=== PATIENT | male | born 1960 | race Hispanic/Latino ===

== ENCOUNTER 2020-03-11 14:56 | Inpatient (IN) | payer OTHER, SELFPAY ==
[2020-03-11] MEDS ORDERED: Ondansetron PF 4 MG/2 ML Vial ONE (15:56)
[2020-03-11] MEDS ORDERED: HYDROmorphone 0.5 MG/0.5 ML SYRINGE ONE ×2 (15:56→16:16)
[2020-03-11] MEDS ORDERED: hydrALAZINE 20 MG/ML VIAL SLOW IVP PRN (16:38)
[2020-03-11] MEDS ORDERED: Dextrose 5% in Water 1,000 ML IV PRN (16:38)
[2020-03-11] MEDS ORDERED: Morphine 4 MG/ML VIAL SLOW IVP PRN (16:38)
[2020-03-11] MEDS ORDERED: Morphine 2 MG/ML VIAL SLOW IVP PRN (16:38)
[2020-03-11] MEDS ORDERED: Dextrose 50% Abboject 50 ML SYRINGE SLOW IVP PRN (16:38)
[2020-03-11] MEDS ORDERED: Ibuprofen 600 MG TAB PO PRN (16:47)
--- NOTE | 2020-03-11 18:24 | CT ---
Head CT without contrast 03/11/2020: COMPARISON: 03/11/2020 HISTORY: Reevaluate intracranial hemorrhage TECHNIQUE: Axial CT imaging at 5 mm intervals from vertex through skull base without contrast FINDINGS: The imaged paranasal sinuses and mastoid air cells are well aerated. No displaced calvarial fracture is seen. The prior examination demonstrated a punctate hyperdensity in the posterior medial aspect of the left cerebral hemisphere near the vertex. That finding is no longer visualized. There is no convincing evidence for intracranial hemorrhage on this exam. IMPRESSION: No evidence for intracranial hemorrhage noted on this examination. Previously noted punct ate focus of hyperdensity near the vertex posteriorly on the left is no longer seen.
--- NOTE | 2020-03-11 18:40 | RAD ---
2 views right clavicle: 03/11/2020 COMPARISON: None available HISTORY: Injury, trauma, pain FINDINGS: There is a comminuted obliquely oriented midshaft right clavicle fracture. The largest dist al fracture fragment demonstrates 1.1 cm of inferior displacement. There is degenerative change involving the right acromioclavicular joint. The glenohumeral relationship is not optimally assessed as no scapular Y view or axillary view is provided. There is a pneumothorax in the right lung apex. Right pneumothorax and right clavicle fracture also w ere noted on chest CT performed 03/11/2020. IMPRESSION: Comminuted displaced fracture of the right clavicle. Right apical pneumothorax.
[2020-03-11 19:17] LABS: #Lymphocytes 0.8 thou/uL (1.20-3.40); #Monocytes 0.6 thou/uL (0.11-0.59); #Neutrophils 8.2 thou/uL (1.40-6.50); %Basophils 0.2 % (0.0-1.0); %Eosinophils 0.2 % (0.0-10.0); %Lymphocytes 8.4 % (21.0-51.0); %Monocytes 6.4 % (0.0-10.0); %Neutrophils 84.9 % (42.0-75.0); Hemoglobin 13.4 g/dL (14.0-18.0); Mean Corpuscular HGB CONC 32.6 g/dL (32.0-36.0); Mean Corpuscular Hemoglobin 30.1 pg (27.0-31.0); Mean Corpuscular Volume 92.2 fL (78.0-98.0); Mean Platelet Volume 9.2 fL (7.4-10.4); Platelet Count 150 thou/uL (130-400); RBC Distribution Width 12.1 % (11.5-14.5); Red Blood Cell (RBC) Count 4.44 mill/uL (4.70-6.10); White Blood Cell (WBC) Count 9.7 thou/uL (4.8-10.8)
--- NOTE | 2020-03-11 19:45 | HP ---
REQUESTING PHYSICIAN: Dr. Escalera. CONSULTS: Orthopedic Surgery, Dr. Johnson. CHIEF COMPLAINT: Fall from a ladder approximately 8 feet with loss of consciousness. 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 The patient reports a positive loss of consciousness and no initial recall of the event. The patient reported right shoulder pain. The patient's vital signs were stable and his GCS was 15. The patient denied any chest pain or shortness of breath. The patient had no other obvious signs of trauma. The patient was initially seen at [facility] and was transferred to [facility] for definitive care. The patient in moderate amount of right shoulder pain and received Dilaudid in the emergency room. The patient is Frisian-speaking. Daughter is at bedside to translate. REVIEW OF SYSTEMS: A 10-point review of systems is negative unless otherwise indicated in the above HPI. PAST MEDICAL HISTORY: Was told he possibly had prediabetes, the patient has no PCP. Last seen a physician for another work-related injury approximately 2 years ago. PAST SURGICAL HISTORY: Denies. SOCIAL HISTORY: A daily drinker, approximately 2 to 3 beers a day. Denies illicit drug use. Denies tobacco use. MEDICATIONS: Denies. ALLERGIES: NO KNOWN DRUG ALLERGIES. OBJECTIVE: VITAL SIGNS: Blood pressure 160/108, pulse 72, respirations 18, SpO2 of 100% on a nonrebreather, temperature 98.1. GENERAL: Middle-aged male, awake, alert, moderate distress due to right shoulder pain. HEENT: Head is atraumatic and normocephalic. Midface is stable. No obvious facial deformities. Pupils are equal bilateral. Extraocular muscles are intact. NECK: Trachea is midline. No JVD. No cervical spine tenderness. Normal range of motion of neck. RESPIRATORY: Equal chest rise and fall. No chest deformity. Respirations are even and nonlabored. Breath sounds are clear with no wheezing, rales, or rhonchi. ABDOMEN: Soft, nontender, nondistended. No peritoneal signs. PELVIS: Stable. EXTREMITIES: Moves all extremities. Strength 5/5 except for right upper extremity 4/5 limited due to pain. Distal pulses 2+ in all extremities. Contusion and severe pain with deformity of right shoulder distal clavicle. Sling in place. NEUROLOGIC: GCS 15. Cranial nerves intact 2 through 12. LABORATORY DATA: WBC 11.3, RBC 4.72, hemoglobin 14.0, hematocrit 41.9, platelets 143. Sodium 139, potassium 3.8, chloride 107, carbon dioxide 24, BUN 15, creatinine 0.88, estimated GFR 88, glucose 251, calcium 8.3, AST 41, ALT 27, alkaline phosphatase 91, albumin 4.0. Plasma alcohol less than 10. DIAGNOSTIC DATA: Brain CT, impression, initially at conscious sedation, concern for possible small hemorrhage, left cerebral hemisphere, recommended a repeat scan in 6 to 8 hours. Repeat scan shows no evidence for intracranial hemorrhage. Right tib-fib x-ray, no osseous abnormalities. C-spine CT, no acute fracture or abnormality. Chest, abdomen, and pelvis CT, impression, small right hemopneumothorax, comminuted right distal clavicular fracture at the level of the coracoclavicular ligament with some overlying soft tissue contusion. Right scapula is intact. Mildly comminuted right first rib fracture with minimally displaced right third through six rib fractures. 1. Multiple displaced right-sided thoracic spine transverse process fractures of T1, T3 through T9. 2. No intra-abdominal solid organ injury. 3. Right humerus fracture, impression, no evidence of acute osseous abnormality. 4. Right clavicle fracture, impression, comminuted displaced fracture of the right clavicle. Right apical pneumothorax. ASSESSMENT: 1. Status post fall from ladder, approximately 8 feet, with positive loss of consciousness. 2. Right small hemopneumothorax. 3. Right pulmonary contusion. 4. Concussion. 5. Right clavicle fracture. 6. Right first rib fracture and right three through six rib fractures. 7. T1, T3 through T9 right transverse process fractures. PLAN: Admit the patient to surgical floor. Regular diet. Pain control with aggressive pulmonary toilet. Sling to right arm. Pending orthopedic surgery recommendations for his right clavicle fracture. We will repeat a chest x-ray and labs in the morning. The plan was discussed with the attending who agrees. Job ID: [id number]
[2020-03-11 19:53] LABS: ALT (SGPT) 32 U/L (8-55); AST (SGOT) 70 U/L (5-34); Albumin 3.9 g/dL (3.4-4.8); Alkaline Phosphatase 83 U/L (40-110); Anion Gap 13 mmol/L (10-20); BUN (Urea Nitrogen) 14 mg/dL (8.4-25.7); Bilirubin, Total 0.9 mg/dL (0.2-1.2); Calc. Creatinine Clearance 0 mL/min (70-130); Calcium 7.9 mg/dL (7.8-10.44); Carbon Dioxide 22 mmol/L (23-31); Chloride 106 mmol/L (98-107); Estimated GFR-MDRD Greater than 90; Globulin 2.8 g/dL (2.4-3.5); Glucose 188 mg/dL (80-115); Potassium 4.1 mmol/L (3.5-5.1); Protein, Total 6.7 g/dL (5.8-8.1); Sodium 137 mmol/L (136-145)
[2020-03-11 19:58] VITALS: BMI 26.2
[2020-03-11] MEDS: traMADol HCl 50 MG TAB PO SCH ×2 (20:01→23:38)
[2020-03-11] MEDS: Acetaminophen 325 MG TAB PO SCH ×2 (20:01→23:38)
[2020-03-11] MEDS: Famotidine 20 MG TAB PO SCH (21:32)
[2020-03-11] MEDS: Gabapentin 300 MG CAP PO SCH (21:32)
[2020-03-11] MEDS: Senokot S 8.6-50 MG TAB PO SCH (21:33)
[2020-03-11] MEDS: Sodium Chloride 0.9% 1,000 ML IV SCH (21:34)
[2020-03-12] MEDS: traMADol HCl 50 MG TAB PO SCH ×3 (05:37→18:32)
[2020-03-12] MEDS: Acetaminophen 325 MG TAB PO SCH (05:37)
[2020-03-12] MEDS: Sodium Chloride 0.9% 1,000 ML IV SCH (05:38)
[2020-03-12 06:10] LABS: Phosphorus 3.3 mg/dL (2.3-4.7)
[2020-03-12 06:11] LABS: Anion Gap 12 mmol/L (10-20); BUN (Urea Nitrogen) 14 mg/dL (8.4-25.7); Calc. Creatinine Clearance 115 mL/min (70-130); Calcium 7.8 mg/dL (7.8-10.44); Carbon Dioxide 22 mmol/L (23-31); Chloride 105 mmol/L (98-107); Estimated GFR-MDRD Greater than 90; Glucose 143 mg/dL (80-115); Magnesium 1.9 mg/dL (1.6-2.6); Potassium 3.7 mmol/L (3.5-5.1); Sodium 135 mmol/L (136-145)
[2020-03-12] MEDS ORDERED: Acetaminophen 325 MG TAB PO SCH (07:57)
[2020-03-12] MEDS ORDERED: Morphine 4 MG/ML VIAL SLOW IVP PRN (07:58)
[2020-03-12] MEDS ORDERED: Potassium Phosphate 15 MMOL, Magnesium Sulfate 2 GM in Sodium Chloride 0.9% 250 ML 250 ML IVPB SCH (08:00)
[2020-03-12] MEDS ORDERED: Magnesium 2 GM/50 ML 2 GM in Premix Bag 1 BAG IVPB SCH (08:00)
[2020-03-12] MEDS ORDERED: Ibuprofen 600 MG TAB PO SCH (08:00)
--- NOTE | 2020-03-12 08:10 | RAD ---
EXAM: Single view of the chest HISTORY: Small right hemopneumothorax COMPARISON: None FINDINGS: Single view of the chest shows a normal sized cardiomediastinal silhouette. There is a smal l right pleural effusion. A right lower lobe infiltrate is seen. No obvious pneumothorax is visualized. Right apical pleural thickening is seen. Degenerative changes are seen in the spine. Ther e is a right clavicle fracture. IMPRESSION: 1. Small right pleural effusion 2. Right lower lobe infiltrate versus contusion
[2020-03-12] MEDS ORDERED: Lidocaine 1% w/Epinephrine 1:100K 20 ML VIAL IJ SCH (08:30)
[2020-03-12] MEDS ORDERED: Lidocaine 1% (PF) 30 ML VIAL ONE (08:41)
[2020-03-12] MEDS ORDERED: CEFAZOLIN 2 GM in Premix Bag 1 BAG IVPB SCH (08:45)
[2020-03-12] MEDS: Famotidine 20 MG TAB PO SCH ×2 (08:50→21:36)
[2020-03-12] MEDS: Senokot S 8.6-50 MG TAB PO SCH ×2 (08:51→21:37)
[2020-03-12] MEDS: Acetaminophen 500 MG TAB PO SCH ×3 (08:51→21:35)
[2020-03-12] MEDS: Thiamine 100 MG TAB PO SCH (08:51)
[2020-03-12] MEDS: Folic Acid 1 MG TAB PO SCH (08:51)
[2020-03-12] MEDS: Multivitamin W/ Minerals 1 TAB PO SCH (08:52)
[2020-03-12] MEDS: Gabapentin 300 MG CAP PO SCH ×3 (08:52→21:36)
--- NOTE | 2020-03-12 10:12 | CON ---
DATE OF CONSULTATION: This is Remington Perez PA-C dictating a report for Maynor Johnson MD. HISTORY OF PRESENT ILLNESS: We were asked by Trauma to see the patient. 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 He sustained a right clavicle fracture for orthopedic purposes. No loss of consciousness. Initially, he had some numbness and tingling in his arm yesterday, but that for the most part has resolved. He is able to move his right upper extremity fairly well, but he has some crunching over the clavicle, which I explained to he and his that would be normal for a while and that the pain should get better each day. PAST MEDICAL HISTORY: Obtained from Nikos Self NP, history and physical. PAST SURGICAL HISTORY: Obtained from Nikos Self NP, history and physical. SOCIAL HISTORY: Obtained from Nikos Self NP, history and physical. MEDICATIONS: Obtained from Nikos Self NP, history and physical. ALLERGIES: OBTAINED FROM NIKOS SELF NP, HISTORY AND PHYSICAL. REVIEW OF SYSTEMS: Speech, clear. Oriented. Right clavicle pain, other aches and pains, but rest of review of systems in regard to organ issues are negative. PHYSICAL EXAMINATION: GENERAL: Well-nourished, well-developed male, alert, pleasant, no acute distress. Speech clear. Answers questions appropriately. Alert and oriented x3. He is resting in a bed in room 3306. is at the bedside. HEENT: Face symmetric. Tongue midline. Scalp atraumatic. EXTREMITIES: Upper extremities; equal size, shape, symmetry. Normal bulk and tone. He does have some deformity over the right anterior chest and some tenderness to palpation over the clavicle. He can move that right upper extremity moderately, has some pain and crunching with movement. He has good sensations in the fingertips and movements. Respirations 16. No acute distress. Rest of physical exam, for orthopedic purposes, is negative. ASSESSMENT: 1. Fall from ladder. 2. Right clavicle fracture, nonsurgical. PLAN: I spoke with the patient and . We will need to see them back in 3 to 4 weeks, get some new x-rays. He is in a sling, which is where we will keep him. If he has worsening of symptoms and/or concerns, we will see him back sooner. The plan has been explained to the and , and they are happy with the plan. Job ID: [id number]
[2020-03-12 12:47] LABS: SARS-CoV-2 MS2 Positive; SARS-CoV-2 N Gene Negative; SARS-CoV-2 S Gene Negative; SARS-CoV-2 by NAA Not Detected (NotDetected); SARS-CoV-2 orf1ab Negative
[2020-03-12] MEDS: Oxazepam 10 MG CAP PO SCH ×2 (14:35→21:41)
--- NOTE | 2020-03-12 16:53 | PRG ---
DATE OF SERVICE: 03/12/2020 SUBJECTIVE: The patient was seen this morning during rounds. He was sitting up in bed with no signs of acute distress. He reported his pain is well controlled. He is pulling about 1500 on his incentive spirometer. Mostly he complains of pain over the right clavicle. Tolerating his diet. Hmalin in place with yellow urine in bag. OBJECTIVE: VITAL SIGNS: Temperature 97.8, pulse 71, respirations 16, oxygen saturation 93% on room air, blood pressure 128/75. GENERAL: Well-appearing, middle-aged male, sitting up in bed with no signs of acute distress. PULMONARY: Equal chest rise and fall. Clear breath sounds bilaterally and diminished at the bases. No signs of acute respiratory distress. CARDIAC: Regular rate and rhythm. GI: Abdomen soft, nontender, nondistended. EXTREMITIES: 2+ pulses in all extremities. Gross motor sensation is intact. No significant swelling noted. Right upper extremity with sling that is in place. There is some mild swelling over the right shoulder and clavicle. LABORATORY DATA: Sodium 135, potassium 3.7, chloride 105, bicarb 22, BUN 14, creatinine 0.67, glucose 143, phosphorus 3.3, magnesium 1.9. DIAGNOSTIC FINDINGS: Chest x-ray completed this morning demonstrates a small right pleural effusion, right lower lobe infiltrate versus contusion. ASSESSMENT: 1. Status post fall from ladder about 8 feet. 2. Small right hemopneumothorax, worsening. 3. Right-sided pulmonary contusion. 4. Possible cerebral hemisphere hemorrhage, resolved on repeat CT. 5. Right clavicle fracture, nonoperative. 6. Right first and 3 through 6 rib fractures. 7. T1 and T3 through T9 transverse process fractures on the right. 8. History of hypertension and prediabetes. 9. Acute hypophosphatemia and hypomagnesemia. PLAN: The patient has received a right-sided chest tube today for worsening hemothorax. 300 mL of blood came out once the chest tube was placed. The patient tolerated the procedure well. Started on Toradol IV for 2 days for better pain control. Discontinue Hamlin. Discontinue IV fluids. The patient to get up out of bed and into the chair today. Replace potassium, phos and magnesium. Repeat chest x-ray in the morning. Dr. Johnson reports follow up in 3o 4 weeks for the right clavicle fracture and they will treat it nonoperatively. Repeat chest x-ray in the morning. This patient was seen and evaluated by Dr. Garcia and myself this morning during rounds. Job ID: [id number]
[2020-03-12] MEDS: Ketorolac Tromethamine 30 MG/ML VIAL IVP SCH (18:31)
[2020-03-13] MEDS: Ketorolac Tromethamine 30 MG/ML VIAL IVP SCH ×5 (00:47→23:11)
[2020-03-13] MEDS: traMADol HCl 50 MG TAB PO SCH ×5 (00:48→23:11)
[2020-03-13] MEDS: Acetaminophen 500 MG TAB PO SCH ×4 (03:26→20:14)
[2020-03-13] MEDS: Oxazepam 10 MG CAP PO SCH ×2 (06:03→14:42)
[2020-03-13 06:19] LABS: #Eosinphils 0.1 thou/uL (0.0-0.7); #Lymphocytes 1.2 thou/uL (1.20-3.40); #Monocytes 0.5 thou/uL (0.11-0.59); #Neutrophils 4.8 thou/uL (1.40-6.50); %Basophils 0.1 % (0.0-1.0); %Eosinophils 0.9 % (0.0-10.0); %Lymphocytes 18.6 % (21.0-51.0); %Monocytes 7.3 % (0.0-10.0); %Neutrophils 73.1 % (42.0-75.0); Hemoglobin 12.1 g/dL (14.0-18.0); Hemoglobin A1c 8.3 % (4.0-6.0); Mean Corpuscular HGB CONC 32.8 g/dL (32.0-36.0); Mean Corpuscular Hemoglobin 30.6 pg (27.0-31.0); Mean Corpuscular Volume 93.4 fL (78.0-98.0); Mean Platelet Volume 9.2 fL (7.4-10.4); Platelet Count 122 thou/uL (130-400); RBC Distribution Width 12.2 % (11.5-14.5); Red Blood Cell (RBC) Count 3.94 mill/uL (4.70-6.10); White Blood Cell (WBC) Count 6.6 thou/uL (4.8-10.8)
[2020-03-13 06:35] LABS: Anion Gap 10 mmol/L (10-20); BUN (Urea Nitrogen) 10 mg/dL (8.4-25.7); Calc. Creatinine Clearance 121 mL/min (70-130); Calcium 7.7 mg/dL (7.8-10.44); Carbon Dioxide 26 mmol/L (23-31); Chloride 103 mmol/L (98-107); Estimated GFR-MDRD Greater than 90; Glucose 154 mg/dL (80-115); Magnesium 2.2 mg/dL (1.6-2.6); Phosphorus 2.3 mg/dL (2.3-4.7); Potassium 3.8 mmol/L (3.5-5.1); Sodium 135 mmol/L (136-145)
[2020-03-13] MEDS: Gabapentin 300 MG CAP PO SCH ×3 (08:48→20:16)
[2020-03-13] MEDS: Famotidine 20 MG TAB PO SCH ×2 (08:48→20:15)
[2020-03-13] MEDS: Senokot S 8.6-50 MG TAB PO SCH ×2 (08:49→20:14)
[2020-03-13] MEDS: Thiamine 100 MG TAB PO SCH (08:49)
[2020-03-13] MEDS: Folic Acid 1 MG TAB PO SCH (08:49)
[2020-03-13] MEDS: Multivitamin W/ Minerals 1 TAB PO SCH (08:49)
[2020-03-13] MEDS: Enoxaparin Sodium 30 MG/0.3 ML SYRINGE SC SCH ×2 (08:50→20:16)
--- NOTE | 2020-03-13 12:22 | EKG ---
Test Reason : Blood Pressure : / mmHG Vent. Rate : 060 BPM Atrial Rate : 060 BPM P-R Int : 128 ms QRS Dur : 118 ms QT Int : 470 ms P-R-T Axes : 058 -36 023 degrees QTc Int : 470 ms Normal sinus rhythm Left axis deviation Non-specific intra-ventricular conduction delay Abnormal ECG Confirmed by HAMILTON MCCOY ([id number]), features editor MAGALIS NAVARRETE ([id number]) on 03/13/2020 12:21:55 PM Referred By: Confirmed By:HAMILTON MCCOY
--- NOTE | 2020-03-13 15:25 | RAD ---
ONE VIEW CHEST: 03/13/20 HISTORY: Right chest tube for hemothorax/pneumothorax. COMPARISON: 03/12/20. FINDINGS: There has been interval placement of a right sided thoracostomy tube. Previously noted right pneumoth orax is less well apparent. There may be very tiny right apical pneumothorax, but this is difficult t o evaluate due to overlying ribs. There is certainly no large pneumothorax. There also has been resol ution of right pleural effusion/pneumothorax. The left lung remains clear. The cardiac silhouette and pulmonary vasculature are within normal limits. Lateral right sided rib fracture is present better v isualized on prior CTA exam. Previously seen comminuted right clavicle fracture is again noted. IMPRESSION: Interval placement of right sided thoracostomy tube with resolution of right pleural effusion/hemotho rax and significant interval improvement in right pneumothorax. There is questionable residual right apical pneumothorax. Continued follow-up is recommended. POS: EDWAR
[2020-03-13] MEDS ORDERED: Dextrose 50% Abboject 50 ML SYRINGE SLOW IVP PRN (16:14)
[2020-03-13] MEDS ORDERED: Dextrose 5% in Water 1,000 ML IV PRN (16:14)
--- NOTE | 2020-03-13 16:37 | PRG ---
DATE OF SERVICE: 03/13/2020 SUBJECTIVE: This patient is hospital day #2, post injury day #2 status post fall from a ladder with multiple right-sided fractures including right hematoma, right pulmonary contusion, right clavicular fracture, right 1st rib and 3rd through 6th rib fractures, T1 and T3 to T9 right transverse process fracture. He is status post tube thoracostomy yesterday with total output of around 675 mL at the time of my visit today. The patient states his pain is controlled. Per the RN, he has been fairly sleepy throughout the day since got to the surgery velazquez. He is a daily drinker, however, he has never withdrawn. He drinks 3 to 4 beers nightly. Could be secondary to He is producing good amount of urine. Has remained hemodynamically stable. OBJECTIVE: VITAL SIGNS: Dated today, temperature is 98.2, blood pressure 154/82, heart rate is 74, respiratory rate is 18, saturating 96% on room air. GENERAL: A 60-year-old male, sitting up in the chair with no acute distress. HEENT: Normocephalic, atraumatic. Trachea is midline. RESPIRATORY: Equal rise and fall. Bilateral breath sounds. Clear to auscultation. Does have a right-sided chest tube appreciated. Does have some pain about the right ribs. Pain about the right clavicle. ABDOMEN: Soft and nontender. Pelvis is stable. MUSCULOSKELETAL: He has a sling to the right upper extremity. He moves all of his extremities. No helga edema. NEURO: Alert and oriented to person, place, time, and event. GCS is 15. PSYCH: Normal mood and affect. DIAGNOSTIC DATA: Today, a white blood cell count of 6.6, platelets are 122, hemoglobin and hematocrit 12.1 and 36.8 respectively. Sodium is 135, potassium 3.8, chloride is 103, CO2 is 26, BUN is 10, creatinine is 0.64, glucose is 154, calcium is 7.7, phos is 2.3, and a Mag of 2.2. Chest x-ray shows a right tube thoracostomy. Has right rib fractures. Resolution of the effusion/hemothorax and improvement in the right pneumothorax. ASSESSMENT: 1. Status post fall from a ladder. 2. Small right hemopneumothorax, improved with tube thoracostomy. 3. Right sided pulmonary contusion. 4. Right clavicular fracture, non operative. 5. Possible cerebral hemisphere contusion, resolved on repeat CT. 6. Right 1st and 3rd through 6th rib fracture. 7. T1, T3 through T9 transverse process fractures on the right. 8. History of hypertension and prediabetes. 9. . 10. Acute hypophosphatemia and hypomagnesemia that have resolved. PLAN: 1. Continue chest tube to suction at this time. 2. Monitor output. 3. Continue pain regimen. 4. Can work with PT and chest tube can go to water seal while he is walking in the halls. 5. Continue IS. 6. We will reduce the oxazepam to 5 mg b.i.d. from 10 mg t.i.d. Monitor for signs of withdrawal. 7. We will obtain hemoglobin A1c. 8. Point of care glucose and sliding scale insulin if glucose is over 150. I have updated the patient and patient's at the bedside and coordinated with the bedside RN. Job ID: [id number]
[2020-03-13] MEDS ORDERED: Oxazepam 10 MG CAP PO SCH ×2 (21:00)
[2020-03-14] MEDS: Ketorolac Tromethamine 30 MG/ML VIAL IVP SCH ×3 (05:47→17:43)
[2020-03-14] MEDS: Acetaminophen 500 MG TAB PO SCH ×3 (05:48→17:43)
[2020-03-14] MEDS: traMADol HCl 50 MG TAB PO SCH ×3 (05:48→17:42)
[2020-03-14] MEDS: Oxazepam 10 MG CAP PO SCH ×2 (05:48→17:47)
--- NOTE | 2020-03-14 08:02 | RAD ---
CHEST 1 VIEW PORTABLE: HISTORY: Followup pneumothorax and pneumonia. COMPARISON: 03/13/2020. FINDINGS: Right chest tube remains in place without significant pneumothorax. Poor inspiration. Somewhat com minuted right clavicle fracture. IMPRESSION: Less inspiration; otherwise, stable chest. No significant pneumothorax. POS: OFF
[2020-03-14] MEDS: Famotidine 20 MG TAB PO SCH ×2 (08:15→20:08)
[2020-03-14] MEDS: Enoxaparin Sodium 30 MG/0.3 ML SYRINGE SC SCH ×2 (08:15→20:09)
[2020-03-14] MEDS: Senokot S 8.6-50 MG TAB PO SCH ×2 (08:15→20:07)
[2020-03-14] MEDS: Multivitamin W/ Minerals 1 TAB PO SCH (08:16)
[2020-03-14] MEDS: Thiamine 100 MG TAB PO SCH (08:16)
[2020-03-14] MEDS: Folic Acid 1 MG TAB PO SCH (08:17)
[2020-03-14] MEDS: Gabapentin 300 MG CAP PO SCH ×3 (08:17→20:09)
[2020-03-14] MEDS: Metoprolol Tartrate 25 MG TAB PO SCH ×2 (10:15→20:07)
--- NOTE | 2020-03-14 12:44 | OP ---
DATE OF PROCEDURE: 03/12/2020 PREPROCEDURE DIAGNOSIS: Worsening right-sided hemothorax. POSTPROCEDURE DIAGNOSIS: Right-sided hemothorax. PROCEDURE PERFORMED: Right-sided chest tube placement. ANESTHESIA: General anesthesia with 20 mL of 1% lidocaine with epinephrine. ESTIMATED BLOOD LOSS: About 20 mL. DESCRIPTION OF PROCEDURE: The patient was identified for a right-sided 28-Belarusian chest tube. The chest x-ray was reviewed before arriving at the patient's bedside with Dr. Garcia and it was determined necessary to evacuate a right-sided hematoma. The patient signed a consent after discussing the risks and benefits of the procedure. A time-out was called. The right-sided chest wall at the anterior axillary line was marked and the patient was prepped and draped for the procedure. A local anesthetic was given using 20 mL of lidocaine with epinephrine. Adequate anesthesia was achieved. The patient was then started before anesthesia. The skin was incised with a #10 blade and dissected down to the subcutaneous tissue. Blunt dissection through the tissue using a hemostat was achieved. The superior costal margin was identified and after moving up one rib space into the intercostal muscle, it was bluntly dissected using gentle controlled pressure until the thoracic cavity was entered. A gush of air was heard and using a finger, there was sweeping of the pleural space and I did not feel any adhesions or organ structures. A chest tube was placed apically to the 12 cm danya, 300 mL of blood was evacuated. The chest tube was sutured with 0 silk and secured. Gauze was applied around the chest tube and secured with tape. The patient tolerated the procedure well and the chamber was placed to suction. A chest x-ray was ordered for the morning. The patient's respirations were nonlabored. He was speaking in full sentences without any accessory muscle use. There was no air leak identified in the chamber. Tidaling was witnessed. Bleeding was controlled, and the patient tolerated the procedure adequately. Dr. Garcia arrived after the procedure was completed and evaluated the chest tube placement at the bedside. Job ID: [id number]
[2020-03-14] MEDS: HumaLOG 300 UNITS/3 ML VIAL SC PRN (14:42)
[2020-03-14] MEDS: Ondansetron PF 4 MG/2 ML Vial IVP PRN ×2 (14:46→20:07)
--- NOTE | 2020-03-14 15:38 | PRG ---
DATE OF SERVICE: 03/14/2020 SUBJECTIVE: Mr. Martínez is seen on morning rounds. His is at the bedside. The patient states he had a good night. Pain is controlled. He has had approximately 500 mL of output yesterday of his right-sided chest tube. There was no air leak. Chest x-ray shows near resolution of his hemothorax. No pneumothorax. SpO2 is preserved. His blood pressure is high overnight. Of note, his chest x-ray did show an expiratory film. The patient is getting around 1200 on his IS when he is set up. States that he slept well. He has no other complaints. He has been up to the chair yesterday. Has not worked with PT yet today. OBJECTIVE: VITAL SIGNS: Temperature is 98.4, blood pressure 158/83, heart rate is 67, breathing 16 times a minute, and saturating 97% on room air. GENERAL: This is a 60-year-old male sitting up, in no acute distress. HEENT: Normocephalic, atraumatic. Trachea is midline. RESPIRATORY: Equal rise and fall. Bilateral breath sounds. Clear to auscultation in upper and lower lobes bilaterally. He does have the right chest tube. Dressing is completely soaked on the right side and saturated. CARDIOVASCULAR: Regular rate and rhythm. ABDOMEN: Slightly obese but soft and nontender. PELVIS: Stable. MUSCULOSKELETAL: He is able to move his extremities. He does have pain about the right extremity around the shoulder with known fracture. NEUROLOGIC: Alert and oriented to person, place, time, and event. GCS is 15. PSYCHIATRIC: Normal mood and affect. SKIN: Warm and dry. DIAGNOSTIC CRITERIA: Today has had glucose of 166 and a chest x-ray showing near resolution of the hemothorax and pneumothorax. ASSESSMENT: 1. Status post fall from ladder. 2. Right hemopneumothorax, improved with tube thoracostomy. 3. Right pulmonary contusion. 4. Right clavicular fracture, nonoperative. 5. Cerebral contusion, stable. 6. Right first rib and third through sixth rib fracture. 7. T1, T3, and T9 transverse process fractures. 8. History of hypertension and prediabetes. 9. Acute traumatic pain. 10. Acute hypophosphatemia and hypomagnesemia that have been resolved. PLAN: 1. Continue with chest tube suction today given the high output. 2. I have taken down the chest tube dressing, cleansed the site with chlorhexidine, and re-dressed the chest tube. 3. Continue pain regimen. 4. Continue to work with PT, OT. Can have chest tube to water seal to walk the halls. 5. Sling to shoulder. 6. TLSO brace. 7. I have reduced the oxazepam only 5 mg twice daily as it only comes in 10 mg capsule, so 10 mg twice daily, which is a reduction. 8. Continue [id number] glucose and sliding scale insulin. 9. Encourage IS. I have answered all questions of the patient and patient's family at the bedside. I have coordinated with the bedside RN. Job ID: [id number]
[2020-03-15] MEDS: Acetaminophen 500 MG TAB PO SCH ×4 (00:17→17:19)
[2020-03-15] MEDS: traMADol HCl 50 MG TAB PO SCH ×4 (00:18→17:18)
[2020-03-15] MEDS: Cyclobenzaprine 10 MG TAB PO PRN (03:08)
[2020-03-15] MEDS: Oxazepam 10 MG CAP PO SCH ×2 (05:23→17:19)
--- NOTE | 2020-03-15 07:48 | RAD ---
Exam: Chest one view HISTORY:Pneumothorax. Pneumonia. Follow-up exam. Comparison: 03/14/2020 FINDINGS: Cardiac silhouette:Cardiomegaly Aorta: Atherosclerosis Pulmonary vessels: Normal Costophrenic angles: Clear LUNGS: No masses or consolidation. Pneumothorax: No pneumothorax Lines and tubes: Stable right-sided chest tube. Osseous abnormalities: Right clavicle fracture is redemonstrated. IMPRESSION: 1. No pneumothorax. 2. Stable right-sided chest tube. 3. Redemonstration of a right clavicle fracture.
[2020-03-15] MEDS: Famotidine 20 MG TAB PO SCH ×2 (07:49→21:10)
[2020-03-15] MEDS: Folic Acid 1 MG TAB PO SCH (07:50)
[2020-03-15] MEDS: Gabapentin 300 MG CAP PO SCH ×3 (07:50→21:10)
[2020-03-15] MEDS: Senokot S 8.6-50 MG TAB PO SCH ×2 (07:50→21:09)
[2020-03-15] MEDS: Multivitamin W/ Minerals 1 TAB PO SCH (07:51)
[2020-03-15] MEDS: Thiamine 100 MG TAB PO SCH (07:51)
[2020-03-15] MEDS: Enoxaparin Sodium 30 MG/0.3 ML SYRINGE SC SCH ×2 (07:51→21:09)
[2020-03-15] MEDS ORDERED: Metoprolol Tartrate 25 MG TAB PO SCH (09:00)
[2020-03-15] MEDS: cloNIDine 0.2 MG TAB PO SCH ×2 (11:12→17:25)
[2020-03-15] MEDS: HumaLOG 300 UNITS/3 ML VIAL SC PRN (17:18)
[2020-03-15] MEDS: Ibuprofen 200 MG TAB PO SCH (21:10)
[2020-03-16] MEDS: Acetaminophen 500 MG TAB PO SCH ×4 (00:20→18:40)
[2020-03-16] MEDS: cloNIDine 0.2 MG TAB PO SCH ×4 (00:20→17:27)
[2020-03-16] MEDS: traMADol HCl 50 MG TAB PO SCH ×4 (00:21→21:15)
--- NOTE | 2020-03-16 01:29 | PRG ---
DATE OF SERVICE: 03/15/2020 SUBJECTIVE: The patient was seen this evening during rounds. He was lying in bed, resting comfortably and asleep with no signs of acute distress. Nursing reported no acute events. Right-sided chest tube is to suction with serosanguineous output in canister. OBJECTIVE: VITAL SIGNS: Temperature 97.6, pulse 60, respirations 18, oxygen saturation 97% on room air, blood pressure 152/81. GENERAL: Well-appearing elderly male, lying in bed with no signs of acute distress. PULMONARY: Equal chest rise and fall. No signs of acute respiratory distress. Right-sided chest tube in place and connected to wall suction. ASSESSMENT: 1. Status post fall from ladder. 2. Right hemopneumothorax, status post chest tube. 3. Right pulmonary contusion. 4. Right clavicle fracture. 5. Right 1st rib and 3 through 6 rib fractures. 6. T1 and T3 right transverse process fractures. 7. History of alcohol use, hypertension, and diabetes. PLAN: Change diet to diabetic diet. Continue current pain regimen. Chest x-ray in the morning. Possible chest tube to water seal tomorrow. Consider starting the patient on metformin tomorrow for better glucose control as A1c is 8.3. Job ID: [id number]
[2020-03-16 05:11] LABS: #Basophils 0.1 thou/uL (0.0-0.2); #Eosinphils 0.1 thou/uL (0.0-0.7); #Lymphocytes 1.5 thou/uL (1.20-3.40); #Monocytes 0.5 thou/uL (0.11-0.59); #Neutrophils 2.3 thou/uL (1.40-6.50); %Basophils 1.1 % (0.0-1.0); %Eosinophils 2.8 % (0.0-10.0); %Lymphocytes 34.1 % (21.0-51.0); %Monocytes 10.7 % (0.0-10.0); %Neutrophils 51.3 % (42.0-75.0); Hemoglobin 12.5 g/dL (14.0-18.0); Mean Corpuscular HGB CONC 32.3 g/dL (32.0-36.0); Mean Corpuscular Hemoglobin 30.1 pg (27.0-31.0); Mean Corpuscular Volume 93.2 fL (78.0-98.0); Mean Platelet Volume 8.3 fL (7.4-10.4); Platelet Count 189 thou/uL (130-400); RBC Distribution Width 12.3 % (11.5-14.5); Red Blood Cell (RBC) Count 4.17 mill/uL (4.70-6.10); White Blood Cell (WBC) Count 4.5 thou/uL (4.8-10.8)
[2020-03-16 05:33] LABS: Anion Gap 10 mmol/L (10-20); BUN (Urea Nitrogen) 15 mg/dL (8.4-25.7); Calc. Creatinine Clearance 115 mL/min (70-130); Calcium 8.3 mg/dL (7.8-10.44); Carbon Dioxide 30 mmol/L (23-31); Chloride 101 mmol/L (98-107); Estimated GFR-MDRD Greater than 90; Glucose 123 mg/dL (80-115); Magnesium 1.9 mg/dL (1.6-2.6); Phosphorus 3.1 mg/dL (2.3-4.7); Potassium 3.6 mmol/L (3.5-5.1); Sodium 137 mmol/L (136-145)
[2020-03-16] MEDS: Ibuprofen 200 MG TAB PO SCH ×3 (06:20→20:16)
[2020-03-16] MEDS: Oxazepam 10 MG CAP PO SCH ×2 (06:21→18:40)
--- NOTE | 2020-03-16 07:43 | RAD ---
Chest one view HISTORY: Pneumonia. Pneumothorax. Follow-up. COMPARISON: 03/15/2020. FINDINGS: Cardiac silhouette is magnified by projection. Pulmonary vasculature are within normal limi ts. Mediastinum is midline. Right thoracostomy tube remains in place. No recurrent pneumothorax evident. No lobar consolidation. Ununited right clavicle fracture again demonstrated. IMPRESSION : Stable radiographic appearance of the chest.
[2020-03-16] MEDS ORDERED: Magnesium Sulfate 2 GM in Sodium Chloride 0.9% 100 ML IVPB SCH (07:45)
[2020-03-16] MEDS ORDERED: Potassium Phosphate 15 MMOL, Magnesium Sulfate 2 GM in Sodium Chloride 0.9% 250 ML 250 ML IVPB SCH ×2 (08:00→09:00)
--- NOTE | 2020-03-16 08:24 | PRG ---
DATE OF SERVICE: 03/15/2020 The patient was seen on morning rounds. SUBJECTIVE: Mr. Truong was lying comfortably in bed today and was accompanied by one of his daughters. His pain appears to be well controlled. His right-sided chest tube has drained 290 mL. It was water sealed today and chest x-ray shows no pneumothorax and stable right-sided chest tube. He has been saturating at 96% to 97% on room air. His blood pressures have continued to be elevated in the 150s and 160s. He was started on metoprolol yesterday, but that will be changed today. Although he has not been eating well in the hospital, his daughter tells us that she and her family have been bringing him food from home and that while he has been eating less, he has been eating well. Sugars have ranged from 119 to 166 in the past 24 hours. He is still a little drowsy despite decreasing his Serax, but it is much improved compared to yesterday. He still has a Hamlin in place, which was recorded to have drained 880 mL. OBJECTIVE: VITAL SIGNS: The patient has been afebrile, his pulse has been in the 60s, respirations 14 to 18, O2 saturations 96% to 97% on room air, blood pressures elevated in the 150s to 160s. GENERAL: He was lying in his bed in no acute distress. HEENT: NCAT. Poor dentition. RESPIRATORY: Continues to have the right-sided chest tube. No respiratory distress. CARDIOVASCULAR: Regular rate and rhythm. ABDOMEN: Slightly obese. MUSCULOSKELETAL: He is able to move his extremities, but has pain on his right extremity consistent with right clavicular fracture. NEUROLOGIC: A and O x3. PSYCHIATRIC: Normal mood and affect. DIAGNOSTIC CRITERIA: He did not have blood work repeated today. Sugars have ranged from 112 to 166 in the past 24 hours. Chest x-ray, status post removal of NG tube and water seal of right chest tube shows no pneumothorax and correctly placed chest tube. ASSESSMENT: 1. Status post fall from ladder. 2. Right hemopneumothorax, improved with thoracostomy. 3. Right pulmonary contusion. 4. Right clavicular fracture, nonoperative. 5. Cerebral contusion, stable. 6. Right first rib fracture and displacement of third through sixth ribs. 7. T1 and T3 through T9 transverse process fractures, displaced on right. 8. Right humerus fracture. 9. History of hypertension and prediabetes. 10. Acute traumatic pain. 11. Acute hypophosphatemia and hypomagnesemia, resolved. PLAN: 1. Water-sealed chest tube today. 2. Discontinue metoprolol and start clonidine 0.2 mg q.6 hours. 3. Continue pain regimen. 4. Continue to work with PT/OT. 5. TLSO brace and shoulder sling. 6. Monitor mentation with decreased Serax dose. 7. Continue [id number] glucose checks and sliding scale insulin. 8. Encourage IS. 9. I have answered all questions at bedside and coordinated with the RN. 10. Plan for discharge once chest tube is removed. Job ID: [id number] MTDD
[2020-03-16] MEDS: Famotidine 20 MG TAB PO SCH ×2 (08:31→20:16)
[2020-03-16] MEDS: Senokot S 8.6-50 MG TAB PO SCH ×2 (08:31→20:17)
[2020-03-16] MEDS: Multivitamin W/ Minerals 1 TAB PO SCH (08:31)
[2020-03-16] MEDS: Thiamine 100 MG TAB PO SCH (08:32)
[2020-03-16] MEDS: Gabapentin 300 MG CAP PO SCH ×3 (08:32→20:16)
[2020-03-16] MEDS: Folic Acid 1 MG TAB PO SCH (08:32)
[2020-03-16] MEDS: Enoxaparin Sodium 30 MG/0.3 ML SYRINGE SC SCH ×2 (08:32→20:15)
[2020-03-16] MEDS ORDERED: Furosemide 40 MG/4 ML VIAL SLOW IVP SCH (08:45)
[2020-03-16] MEDS: metFORMIN 500 MG TAB PO SCH ×2 (09:12→18:40)
[2020-03-16] MEDS: Lisinopril 10 MG TAB PO SCH (09:12)
[2020-03-16] MEDS: Cyclobenzaprine 10 MG TAB PO PRN (10:38)
--- NOTE | 2020-03-16 16:36 | RAD ---
Chest one view HISTORY: Pneumothorax. Follow-up. COMPARISON: 03/16/2020. FINDINGS: Cardiac silhouette and pulmonary vasculature are unremarkable. Mediastinum is midline. Right thoracostomy tube no longer present. Mild residual parenchymal scarring at the lateral aspect of the right lung. No evidence of pneumothorax. Right clavicle fracture demonstrated. IMPRESSION : Interval chest tube removal. No recurrent pneumothorax.
[2020-03-16] MEDS ORDERED: traMADol HCl 50 MG TAB PO PRN ×2 (19:00)
[2020-03-17] MEDS: Acetaminophen 500 MG TAB PO SCH ×4 (00:34→17:54)
[2020-03-17] MEDS: cloNIDine 0.2 MG TAB PO SCH ×4 (00:34→17:54)
--- NOTE | 2020-03-17 00:39 | PRG ---
DATE OF SERVICE: 03/16/2020 SUBJECTIVE: The patient was seen this evening during rounds. He was lying in bed, resting comfortably and asleep with no signs of acute distress. Nursing reported no acute events. OBJECTIVE: VITAL SIGNS: Temperature 98.0, pulse 65, respirations 16, oxygen saturation 95% on room air, blood pressure 140/81. GENERAL: Well-appearing elderly male, lying in bed, resting comfortably and asleep with no signs of acute distress. PULMONARY: Equal chest rise and fall. No signs of acute respiratory distress. ASSESSMENT: 1. Status post fall from ladder about 8 feet. 2. Right hemopneumothorax, status post chest tube. 3. Right pulmonary contusion. 4. Right first rib fracture and right 3 through 6 rib fractures. 5. Right clavicle fracture. 6. T-spine transverse process fracture. 7. History of daily alcohol use, hypertension, and diabetes. PLAN: Continue current diet and pain regimen. Continue physical and occupational therapy. Continue to monitor the patient's glucose and blood pressure as he has been started on metformin and lisinopril. Repeat chest x-ray in the morning as well as blood work. Job ID: [id number]
[2020-03-17] MEDS: Ibuprofen 200 MG TAB PO SCH ×2 (05:23→14:30)
[2020-03-17] MEDS: Oxazepam 10 MG CAP PO SCH (05:23)
[2020-03-17 05:38] LABS: Anion Gap 15 mmol/L (10-20); BUN (Urea Nitrogen) 16 mg/dL (8.4-25.7); Calc. Creatinine Clearance 107 mL/min (70-130); Calcium 8.4 mg/dL (7.8-10.44); Carbon Dioxide 26 mmol/L (23-31); Chloride 99 mmol/L (98-107); Estimated GFR-MDRD Greater than 90; Glucose 148 mg/dL (80-115); Phosphorus 3.1 mg/dL (2.3-4.7); Sodium 136 mmol/L (136-145)
--- NOTE | 2020-03-17 08:16 | RAD ---
EXAM: Single view of the chest HISTORY: Previous right pneumothorax status post chest tube removal COMPARISON: 03/16/2020, 03/12/2020 FINDINGS: Single view of the chest shows a normal sized cardiomediastinal silhouette. There is pleur al thickening in the right apex. No pneumothorax is visualized. There is no evidence of consolidation, mass, or pleural effusion. There is a right clavicle fracture. Degenerative changes ar e seen in the spine. IMPRESSION: 1. Right pleural thickening without evidence of pneumothorax. 2. Right clavicle fracture
[2020-03-17] MEDS: Enoxaparin Sodium 30 MG/0.3 ML SYRINGE SC SCH (09:11)
[2020-03-17] MEDS: Famotidine 20 MG TAB PO SCH (09:11)
[2020-03-17] MEDS: metFORMIN 500 MG TAB PO SCH ×2 (09:11→17:51)
[2020-03-17] MEDS: Folic Acid 1 MG TAB PO SCH (09:12)
[2020-03-17] MEDS: Multivitamin W/ Minerals 1 TAB PO SCH (09:12)
[2020-03-17] MEDS: Senokot S 8.6-50 MG TAB PO SCH (09:12)
[2020-03-17] MEDS: Gabapentin 300 MG CAP PO SCH ×2 (09:12→14:30)
[2020-03-17] MEDS: Lisinopril 10 MG TAB PO SCH (09:13)
[2020-03-17] MEDS: Thiamine 100 MG TAB PO SCH (09:13)
[2020-03-17 15:50] VITALS: BP 149/83; TEMP 99.1
[2020-03-17] MEDS ORDERED: Oxazepam 10 MG CAP PO SCH (21:00)
== END 2020-03-17 18:35 | disposition home or self-care (01) | DRG 964 ==
LOC: ERS 14:56 → SURG A 16:43
PROVIDERS: ADMIT Surgery; ATTEND Surgery
PROC: 0W9930Z Drainage of Right Pleural Cavity with Drainage Device, Percutaneous Approach (ICD-10-PCS; principal; 2020-03-12)
DX: S27.2XXA Traumatic hemopneumothorax, initial encounter (principal); S06.339A Contusion and laceration of cerebrum, unspecified, with loss of consciousness of unspecified duration, initial encounter; S42.301A Unspecified fracture of shaft of humerus, right arm, initial encounter for closed fracture; S27.321A Contusion of lung, unilateral, initial encounter; S22.41XA Multiple fractures of ribs, right side, initial encounter for closed fracture; S22.019A Unspecified fracture of first thoracic vertebra, initial encounter for closed fracture; S22.039A Unspecified fracture of third thoracic vertebra, initial encounter for closed fracture; S22.049A Unspecified fracture of fourth thoracic vertebra, initial encounter for closed fracture; S22.059A Unspecified fracture of T5-T6 vertebra, initial encounter for closed fracture; S22.069A Unspecified fracture of T7-T8 vertebra, initial encounter for closed fracture; S22.079A Unspecified fracture of T9-T10 vertebra, initial encounter for closed fracture; Z20.828 Contact with and (suspected) exposure to other viral communicable diseases; S42.021A Displaced fracture of shaft of right clavicle, initial encounter for closed fracture; I10 Essential (primary) hypertension; R73.03 Prediabetes; E83.39 Other disorders of phosphorus metabolism; E83.42 Hypomagnesemia; R40.2362 Coma scale, best motor response, obeys commands, at arrival to emergency department; R40.2142 Coma scale, eyes open, spontaneous, at arrival to emergency department; R40.2252 Coma scale, best verbal response, oriented, at arrival to emergency department; W11.XXXA Fall on and from ladder, initial encounter; Y92.007 Garden or yard of unspecified non-institutional (private) residence as the place of occurrence of the external cause; Y93.H2 Activity, gardening and landscaping; Z79.899 Other long term (current) drug therapy; Z79.84 Long term (current) use of oral hypoglycemic drugs
CPT/HCPCS: 36415; 36416; 36600; 51702; 70450; 71045; 80048; 83036; 83735; 84100; 85025; 87635; 94640; 96361; 96374; 96375; G0390; J0690; J1170; J1650; J1885; J1940; J2001; J2270; J2405; J3475; J7050; J7620; U0003